=== PATIENT | male | born 1955 | race Caucasian/White ===

== ENCOUNTER 2017-06-10 10:16 | Day surgery (SDC) | payer MEDICARE ==
[~2017-06-10] VITALS: Ht 170.2 cm; Wt 130.6 kg
[~2017-06-10 10:16] MED LIST: AMLO2.5T45 PO; ATOR40TA70 PO; CARV25TA47 PO; DILT360C28 PO; FOLI-43 PO; FURO40TA5 PO; GLIP5TAB12 PO; POTA10TA15 PO; VIAG50 PO
[2017-06-10 11:25] LABS: BASOPHILS % 0.5 % (0.0-2.0); HEMATOCRIT. 36.2 % (42.0-52.0); HEMOGLOBIN. 12.2 g/dL (14.0-18.0); LYMPHOCYTES % 15.1 % (20.0-50.0); MEAN CORPUSCULAR HEMOGLOBIN 33.2 pg (28.0-32.0); MEAN PLATELET VOLUME 7.5 fl (7.4-10.4); MONOCYTES % 7.2 % (2.0-8.0); NEUTROPHILS % 74.2 % (40.0-76.0); PLATELET 256 x1000/uL (130-400); RED BLOOD CELL COUNT 3.69 mill/uL (4.7-6.1); RED CELL DISTRIBUTION WIDTH 16.3 % (11.6-14.6)
[2017-06-10] MEDS ORDERED: GELATIN SPONGE,ABSORBABLE SZ 100 ONE (11:28)
[2017-06-10] MEDS ORDERED: BACITRACIN ZINC 15GM TUBE TOP ONE (11:28)
[2017-06-10] MEDS ORDERED: THROMBIN (BOVINE) 5000 UNITS/VIAL TOP ONE (11:28)
[2017-06-10] MEDS ORDERED: LIDOCAINE HCL 1% 20ML VIAL (Pyxis) INJ ONE (11:29)
[2017-06-10] MEDS ORDERED: BUPIVACAINE HCL/PF 0.5% (5MG/ML) 10ML ONE (11:29)
[2017-06-10] MEDS ORDERED: HEPARIN SODIUM 1,000 UNIT/1ML VIAL IV ONE ×3 (11:29→15:45)
[2017-06-10] MEDS ORDERED: NORMAL SALINE 0.9% 10 ML SYR ONE (11:29)
[2017-06-10] MEDS ORDERED: BACITRACIN 50,000 UNITS/VIAL ONE (11:30)
[2017-06-10 11:32] LABS: INR 1.2; PARTIAL THROMBOPLASTIN TIME 29.4 sec (23.4-31.0); PROTHROMBIN TIME 12.5 sec (9.4-11.6)
[2017-06-10] MEDS ORDERED: PRAV40TA58 PO (12:37)
[2017-06-10] MEDS ORDERED: CALC667T2 PO (12:37)
[2017-06-10] MEDS ORDERED: AMBR10TA3 PO (12:37)
[2017-06-10] MEDS ORDERED: AMBR5TAB3 PO (12:37)
[2017-06-10] MEDS ORDERED: MIDAZOLAM HCL 2 MG/2 ML VIAL ONE (12:55)
[2017-06-10] MEDS ORDERED: FENTANYL CITRATE/PF 50MCG/ML 2ML VIAL ONE (12:55)
[2017-06-10] MEDS ORDERED: PROPOFOL 10MG/ML 100ML 100 ML IV ONE (12:56)
[2017-06-10] MEDS ORDERED: ONDANSETRON HCL 4MG/2ML VIAL IV PRN (13:30)
[2017-06-10] MEDS ORDERED: MEPERIDINE HCL/PF 25MG/ML CPJ IV PRN (13:30)
[2017-06-10] MEDS ORDERED: HYDROMORPHONE HCL/PF 2MG/ML CPJ IV PRN (13:30)
[2017-06-10] MEDS ORDERED: LABETALOL HCL 5MG/ML VIAL 20ML IV PRN (13:30)
[2017-06-10] MEDS ORDERED: HEPARIN 1000 UNITS/ML 10ML ONE (13:31)
[2017-06-10 15:02] VITALS: BP 109/65
[2017-06-10] MEDS ORDERED: HEPARIN 5000 UNITS/ML VIAL IV ONE (15:15)
== END 2017-06-10 15:35 | disposition home or self-care (01) ==
LOC: OR 10:16
PROVIDERS: ATTEND Surgery Vascular Surgery
DX: N18.6 End stage renal disease (principal); E11.22 Type 2 diabetes mellitus with diabetic chronic kidney disease; I13.2 Hypertensive heart and chronic kidney disease with heart failure and with stage 5 chronic kidney disease, or end stage renal disease; I50.32 Chronic diastolic (congestive) heart failure; I27.20 Pulmonary hypertension, unspecified; I48.92 Unspecified atrial flutter; J44.9 Chronic obstructive pulmonary disease, unspecified; E78.5 Hyperlipidemia, unspecified; D64.89 Other specified anemias; Z79.01 Long term (current) use of anticoagulants; Z79.84 Long term (current) use of oral hypoglycemic drugs; Z83.3 Family history of diabetes mellitus; Z99.2 Dependence on renal dialysis
CPT/HCPCS: 36415; 36825; 80048; 85025; 85610; 85730; 93005; A4216; J1170; J1644; J2250; J2704; J3010; J3490; J7040

== ENCOUNTER 2017-11-15 11:25 | Inpatient (IN) | payer MEDICARE ==
[~2017-11-15] VITALS: Ht 170.2 cm; Wt 119.3 kg
[~2017-11-15 11:25] MED LIST changes: +AMBR5TAB3 PO; -AMLO2.5T45 PO; +CALC667T2 PO; -CARV25TA47 PO; +DIGO125T82 PO; -FURO40TA5 PO; -POTA10TA15 PO; -VIAG50 PO; +WARF-53 PO
[2017-11-15 12:40] LABS: HEMATOCRIT. 32.8 % (42.0-52.0); MEAN CORPUSCULAR HEMOGLOBIN 32.3 pg (28.0-32.0); MEAN PLATELET VOLUME 7.5 fl (7.4-10.4); PLATELET 315 x1000/uL (130-400); RED BLOOD CELL COUNT 3.41 mill/uL (4.7-6.1); RED CELL DISTRIBUTION WIDTH 14.7 % (11.6-14.6)
[2017-11-15 12:44] LABS: CHLORIDE 101 mEq/L (98-107)
[2017-11-15 12:46] LABS: PARTIAL THROMBOPLASTIN TIME 37.3 sec (23.4-31.0); PROTHROMBIN TIME 19.4 sec (9.1-11.1)
[2017-11-15 13:05] LABS: PLATELET ESTIMATE NORMAL
[2017-11-15] MEDS ORDERED: ONDANSETRON HCL 4MG/2ML VIAL IV STA (13:23)
[2017-11-15] MEDS ORDERED: MORPHINE SULFATE 4 MG/ML CPJ (NOT FOR IM USE) IV STA (13:23)
[2017-11-15] MEDS ORDERED: SODIUM CHLORIDE 0.9% 1,000 ML IV ONE (13:23)
[2017-11-15] MEDS ORDERED: MORPHINE SULFATE 4 MG/ML CPJ (NOT FOR IM USE) IV ONE (16:15)
[2017-11-15 17:29] LABS: HEMATOCRIT. 32.2 % (42.0-52.0); HEMOGLOBIN. 10.9 g/dL (14.0-18.0); MEAN CORPUSCULAR HEMOGLOBIN 32.6 pg (28.0-32.0); MEAN CORPUSCULAR VOLUME 96.1 fL (80.0-94.0); MEAN PLATELET VOLUME 7.7 fl (7.4-10.4); PLATELET 302 x1000/uL (130-400); RED BLOOD CELL COUNT 3.35 mill/uL (4.7-6.1); RED CELL DISTRIBUTION WIDTH 14.6 % (11.6-14.6)
[2017-11-15 17:35] LABS: CHLORIDE 99 mEq/L (98-107); INR 1.9; PROTHROMBIN TIME 19.2 sec (9.1-11.1)
[2017-11-15] MEDS ORDERED: IPRATROPIUM/ALBUTEROL 0.5-3(2.5)MG/3ML NEB INH PRN (17:45)
[2017-11-15] MEDS ORDERED: ONDANSETRON HCL 4MG/2ML VIAL IV PRN (17:45)
[2017-11-15] MEDS ORDERED: NA PHOS,M-B/NA PHOS,DI-BA ENEMA 118ML PR PRN (17:45)
[2017-11-15] MEDS ORDERED: CLONIDINE 0.1MG TABLET PO PRN (17:45)
[2017-11-15] MEDS ORDERED: HYDROCODONE/ACETAMINOPHEN 5/325MG TABLET PO PRN (17:45)
[2017-11-15] MEDS ORDERED: ACETAMINOPHEN 325MG TABLET PO PRN (17:45)
[2017-11-15] MEDS ORDERED: ACETAMINOPHEN 650MG SUPP PR PRN (17:45)
[2017-11-15] MEDS ORDERED: DIPHENHYDRAMINE 50MG/ML VIAL IV PRN (17:45)
[2017-11-15] MEDS ORDERED: MAGNESIUM/ALUMINUM HYDROXIDE/SIMETHICONE 30ML UDC PO PRN (17:45)
[2017-11-15 18:45] LABS: PLATELET ESTIMATE NORMAL
[2017-11-15] MEDS ORDERED: DEXTROSE 50% WATER 50ML SYRINGE IV PRN (18:45)
[2017-11-15] MEDS ORDERED: PIPERACILLIN/TAZ 2.25G PREMIX 50 ML IV NR (18:47)
[2017-11-15] MEDS: BLOOD SUGAR DIAGNOSTIC STRIP TEST SCH (21:00)
[2017-11-15] MEDS: INSULIN LISPRO 100 UNITS/ML SUBCUT SCH (21:00)
[2017-11-15 21:19] VITALS: BP 148/55
[2017-11-15] MEDS ORDERED: DEXT 5%/0.45% NACL 1000ML 1,000 ML IV SCH (21:30)
[2017-11-16] VITALS: BP 124/45
[2017-11-16] MEDS ORDERED: VARE0.5T PO (00:37)
[2017-11-16] MEDS ORDERED: SEVE800T8 PO (00:39)
[2017-11-16] MEDS ORDERED: OMEP20TA2 PO (00:46)
[2017-11-16] MEDS ORDERED: [UNRECOGNIZED DRUG - CODE] PO (00:46)
[2017-11-16] MEDS ORDERED: TETR-55 PO (00:46)
[2017-11-16] MEDS ORDERED: METR250T4 PO (00:47)
[2017-11-16] MEDS: PIPERACILLIN/TAZ 2.25G PREMIX 50 ML IV SCH ×2 (02:09→09:12)
[2017-11-16 04:00] VITALS: BP 108/57
[2017-11-16] MEDS: BLOOD SUGAR DIAGNOSTIC STRIP TEST SCH ×3 (06:06→17:30)
[2017-11-16] MEDS: INSULIN LISPRO 100 UNITS/ML SUBCUT SCH ×3 (06:06→17:30)
[2017-11-16 07:16] LABS: EOSINOPHILS % 1.6 % (0.0-5.0); HEMATOCRIT. 29.9 % (42.0-52.0); HEMOGLOBIN. 10.1 g/dL (14.0-18.0); LYMPHOCYTES % 11.1 % (20.0-50.0); MEAN CORPUSCULAR HEMOGLOBIN 32.5 pg (28.0-32.0); MEAN CORPUSCULAR VOLUME 96.3 fL (80.0-94.0); MEAN PLATELET VOLUME 7.7 fl (7.4-10.4); MONOCYTES % 6.2 % (2.0-8.0); NEUTROPHILS % 80.1 % (40.0-76.0); PLATELET 301 x1000/uL (130-400); RED CELL DISTRIBUTION WIDTH 14.5 % (11.6-14.6)
[2017-11-16 07:25] LABS: CHLORIDE 101 mEq/L (98-107)
[2017-11-16 07:44] LABS: LDL CHOLESTEROL 48 mg/dL (5-100)
[2017-11-16 07:46] LABS: T4 FREE 1.04 ng/dL (0.76-1.46)
[2017-11-16 07:47] LABS: HDL CHOLESTEROL 30 mg/dL (40-59)
[2017-11-16 08:00] VITALS: BP 111/41
[2017-11-16] MEDS ORDERED: PANTOPRAZOLE SODIUM 40 MG/VIAL IV SCH (09:00)
[2017-11-16 12:00] VITALS: BP 122/45
[2017-11-16 16:00] VITALS: BP 113/45
[2017-11-16] MEDS ORDERED: PIPERACILLIN/TAZ 2.25G PREMIX 50 ML IV SCH (18:00)
[2017-11-16 18:18] VITALS: BP 113/45
[2017-11-16 18:45] LABS: PROTHROMBIN TIME 20.1 sec (9.1-11.1)
== END 2017-11-16 19:35 | disposition home or self-care (01) | DRG 391 ==
LOC: ER 11:25 → SUPCPDRO 16:41 → ENRESERV 19:26 → 8WST 21:25
PROVIDERS: ADMIT Internal Medicine; ATTEND Internal Medicine
DX: K52.9 Noninfective gastroenteritis and colitis, unspecified (principal); N18.6 End stage renal disease; I50.43 Acute on chronic combined systolic (congestive) and diastolic (congestive) heart failure; D68.59 Other primary thrombophilia; I13.2 Hypertensive heart and chronic kidney disease with heart failure and with stage 5 chronic kidney disease, or end stage renal disease; E46 Unspecified protein-calorie malnutrition; K57.92 Diverticulitis of intestine, part unspecified, without perforation or abscess without bleeding; Z68.41 Body mass index [BMI] 40.0-44.9, adult; D64.9 Anemia, unspecified; E11.22 Type 2 diabetes mellitus with diabetic chronic kidney disease; J06.9 Acute upper respiratory infection, unspecified; E66.9 Obesity, unspecified; D72.829 Elevated white blood cell count, unspecified; F17.210 Nicotine dependence, cigarettes, uncomplicated; I48.91 Unspecified atrial fibrillation; Z79.899 Other long term (current) drug therapy; Z79.01 Long term (current) use of anticoagulants; Z90.49 Acquired absence of other specified parts of digestive tract; Z99.2 Dependence on renal dialysis; Z91.013 Allergy to seafood
CPT/HCPCS: 36415; 71045; 74176; 80053; 80061; 82962; 83690; 84439; 84443; 84484; 85025; 85610; 85730; 87040; 93005; 93306; 93970; 96374; 96375; 99285; C9113; J2270; J2405; J2543; J3490; J7030; J7040

== ENCOUNTER 2019-05-21 22:24 | Emergency (ER) | payer MEDICARE ==
[~2019-05-21] VITALS: Ht 170.2 cm; Wt 119.9 kg
[~2019-05-21 22:24] MED LIST changes: +DIGO125T80 PO; -DIGO125T82 PO; -DILT360C28 PO; +DILT360C37 PO; +METR250T36 PO; +OMEP20TA2 PO; +SEVE800T8 PO; +TETR-55 PO; +VARE0.5T PO; +[UNRECOGNIZED DRUG - CODE] PO
[2019-05-22 00:22] LABS: BASOPHILS % 0.9 % (0.0-2.0); EOSINOPHILS % 1.8 % (0.0-5.0); HEMATOCRIT. 39.3 % (42.0-52.0); HEMOGLOBIN. 13.7 g/dL (14.0-18.0); LYMPHOCYTES % 19.5 % (20.0-50.0); MEAN CORPUSCULAR HEMOGLOBIN 35.7 pg (28.0-32.0); MEAN CORPUSCULAR VOLUME 102.3 fL (80.0-94.0); MEAN PLATELET VOLUME 7.4 fl (7.4-10.4); MONOCYTES % 9.2 % (2.0-8.0); NEUTROPHILS % 68.6 % (40.0-76.0); PLATELET 270 x1000/uL (130-400); RED BLOOD CELL COUNT 3.84 mill/uL (4.7-6.1); RED CELL DISTRIBUTION WIDTH 14.5 % (11.6-14.6)
[2019-05-22 00:27] LABS: CHLORIDE 96 mEq/L (98-107); INR 1.8; PROTHROMBIN TIME 19.4 sec (9.6-11.0)
[2019-05-22 02:17] VITALS: BP 100/65
== END 2019-05-22 02:37 | disposition home or self-care (01) ==
LOC: ER 22:24
DX: R19.5 Other fecal abnormalities (principal); I12.0 Hypertensive chronic kidney disease with stage 5 chronic kidney disease or end stage renal disease; N18.6 End stage renal disease; Z99.2 Dependence on renal dialysis; I48.91 Unspecified atrial fibrillation; Z79.01 Long term (current) use of anticoagulants; Z79.899 Other long term (current) drug therapy; Z91.013 Allergy to seafood
CPT/HCPCS: 36415; 80053; 85025; 99283